=== PATIENT | female | born 1990 | race Caucasian/White ===

== ENCOUNTER 2022-11-08 12:08 | Inpatient (IN) | payer MEDICAID, OTHER ==
[~2022-11-08] VITALS: Ht 162.6 cm; Wt 64.9 kg
[2022-11-08] MEDS ORDERED: LORazepam 2 MG TABLET PO PRN (14:30)
[2022-11-08] MEDS ORDERED: QUEtiapine FUMARATE 100 MG TABLET PO PRN (14:30)
[2022-11-08] MEDS ORDERED: ZOLPIDEM TARTRATE 10 MG TABLET PO PRN (14:30)
[2022-11-08 18:45] LABS: COVID AG,FIA SOURCE NASAL SWAB
[2022-11-08 19:11] LABS: SARS-COV2 (COVID) ANTIGEN,FIA Negative (Negative)
[2022-11-09 04:20] VITALS: BP 107/66; PULSE 52; RESP 18; TEMP 97.3; O2SAT 100
[2022-11-09 08:21] VITALS: BP 102/62; PULSE 68; RESP 20; TEMP 98.2; O2SAT 98
[2022-11-09] MEDS: RisperiDONE 1 MG TABLET PO SCH ×2 (11:30→20:25)
[2022-11-09] MEDS: DIVALPROEX SODIUM 500 MG DR TABLET PO SCH ×2 (11:30→20:25)
[2022-11-09] MEDS ORDERED: NICOTINE 14 MG/24 HOUR PATCH TD PRN (15:00)
[2022-11-09] MEDS ORDERED: ONDANSETRON HCL 4 MG TABLET PO PRN (15:00)
[2022-11-09] MEDS ORDERED: ALBUTEROL SULFATE HFA 90 MCG/PUFF 8 GM INHALER IH PRN (15:00)
[2022-11-09] MEDS ORDERED: DOCUSATE SODIUM 100 MG CAPSULE PO PRN (15:00)
[2022-11-09] MEDS ORDERED: LOPERAMIDE HCL 2 MG CAPSULE PO PRN (15:00)
[2022-11-09] MEDS ORDERED: GuaiFENesin/D-METHORPHAN [SUGAR-FREE] 200-20MG/10 ML SYRUP UDCUP PO PRN (15:00)
[2022-11-09] MEDS ORDERED: MAGNESIUM HYDROXIDE SUSPENSION 30 ML UDCUP PO PRN (15:00)
[2022-11-09] MEDS ORDERED: MAG HYDROX/ALUMINUM HYD/SIMETH ES 30 ML SUSPENSION UDCUP PO PRN (15:00)
[2022-11-09] MEDS ORDERED: IBUPROFEN 400 MG TABLET PO PRN (15:00)
[2022-11-09] MEDS ORDERED: CloNIDine HCL 0.1 MG TABLET PO PRN (15:00)
[2022-11-09] MEDS ORDERED: PETROLATUM,WHITE 28 GM JELLY TP PRN (15:00)
[2022-11-09] MEDS ORDERED: ACETAMINOPHEN 325 MG TABLET PO PRN (15:00)
[2022-11-09 20:00] VITALS: BP 109/69; PULSE 64; RESP 18; TEMP 97.8; O2SAT 98
[2022-11-10 08:36] VITALS: RESP 17
[2022-11-10] MEDS: DIVALPROEX SODIUM 500 MG DR TABLET PO SCH ×2 (09:00→20:21)
[2022-11-10] MEDS: RisperiDONE 1 MG TABLET PO SCH ×2 (09:00→20:21)
[2022-11-10 20:00] VITALS: BP 106/63; PULSE 57; RESP 18; TEMP 97.1; O2SAT 100
[2022-11-10] MEDS ORDERED: INFLUENZA VIRUS VACCINE QVS 2023-24 (6MO+)/PF 60 MCG/0.5 ML SYRINGE IM. ONE (20:00)
[2022-11-11] MEDS: DIVALPROEX SODIUM 500 MG DR TABLET PO SCH ×3 (08:22→20:08)
[2022-11-11] MEDS: RisperiDONE 1 MG TABLET PO SCH ×3 (08:22→20:08)
[2022-11-11 08:54] VITALS: BP 107/65; PULSE 74; RESP 17; TEMP 97.1; O2SAT 99
[2022-11-11 20:36] VITALS: BP 105/54; PULSE 70; RESP 18; TEMP 97; O2SAT 99
[2022-11-12] MEDS: RisperiDONE 1 MG TABLET PO SCH ×2 (08:42→21:00)
[2022-11-12] MEDS: DIVALPROEX SODIUM 500 MG DR TABLET PO SCH ×2 (08:42→21:00)
[2022-11-12 09:06] VITALS: BP 102/60; PULSE 76; RESP 17; TEMP 97.5; O2SAT 98
[2022-11-12 22:03] VITALS: BP 115/77; PULSE 115; RESP 18; TEMP 97.6; O2SAT 98
[2022-11-13 08:00] VITALS: BP 119/72; PULSE 76; RESP 18; TEMP 97; O2SAT 100
[2022-11-13] MEDS: RisperiDONE 1 MG TABLET PO SCH ×2 (08:44→20:22)
[2022-11-13] MEDS: DIVALPROEX SODIUM 500 MG DR TABLET PO SCH ×2 (08:44→20:22)
[2022-11-13 21:46] VITALS: RESP 16
[2022-11-14 08:00] VITALS: RESP 20
[2022-11-14] MEDS: DIVALPROEX SODIUM 500 MG DR TABLET PO SCH ×2 (09:00→21:00)
[2022-11-14] MEDS: RisperiDONE 1 MG TABLET PO SCH ×2 (09:00→21:00)
[2022-11-14 20:36] VITALS: BP 127/87; PULSE 65; RESP 18; TEMP 98.1; O2SAT 97
[2022-11-15 08:12] VITALS: BP 110/63; PULSE 75; RESP 17; TEMP 97.3; O2SAT 99
[2022-11-15] MEDS: DIVALPROEX SODIUM 500 MG DR TABLET PO SCH ×2 (08:54→20:29)
[2022-11-15] MEDS: RisperiDONE 1 MG TABLET PO SCH ×2 (08:54→20:29)
[2022-11-15 20:32] VITALS: RESP 18
[2022-11-16 08:17] VITALS: BP 100/64; PULSE 68; RESP 17; TEMP 97; O2SAT 99
[2022-11-16] MEDS: RisperiDONE 1 MG TABLET PO SCH ×2 (08:22→21:00)
[2022-11-16] MEDS: DIVALPROEX SODIUM 500 MG DR TABLET PO SCH ×2 (08:23→21:00)
[2022-11-16] MEDS ORDERED: LORazepam 2 MG/ML VIAL ONE (14:52)
[2022-11-16] MEDS ORDERED: HALOPERIDOL LACTATE 5 MG/ML VIAL ONE (14:53)
[2022-11-16] MEDS ORDERED: HALOPERIDOL LACTATE 5 MG/ML VIAL IM ONE (15:00)
[2022-11-16] MEDS ORDERED: DiphenhydrAMINE HCL 50 MG/ML VIAL IM ONE (15:00)
[2022-11-16] MEDS ORDERED: LORazepam 2 MG/ML VIAL IM ONE (15:00)
[2022-11-16 20:41] VITALS: RESP 17
[2022-11-17] MEDS: DIVALPROEX SODIUM 500 MG DR TABLET PO SCH ×2 (08:44→20:35)
[2022-11-17] MEDS: RisperiDONE 1 MG TABLET PO SCH ×2 (08:44→20:35)
[2022-11-17 09:33] VITALS: BP 108/65; PULSE 87; RESP 20; TEMP 97.6; O2SAT 99
[2022-11-17 21:29] VITALS: BP 100/65; PULSE 82; RESP 18; TEMP 97.8; O2SAT 97
[2022-11-18 08:00] VITALS: BP 110/70; PULSE 88; RESP 18; TEMP 97
[2022-11-18] MEDS: DIVALPROEX SODIUM 500 MG DR TABLET PO SCH ×2 (08:30→21:38)
[2022-11-18] MEDS: RisperiDONE 1 MG TABLET PO SCH ×2 (08:30→21:38)
[2022-11-18 20:52] VITALS: BP 106/68; PULSE 70; RESP 17; TEMP 97.2; O2SAT 98
[2022-11-19] MEDS: DIVALPROEX SODIUM 500 MG DR TABLET PO SCH ×2 (08:26→20:15)
[2022-11-19] MEDS: RisperiDONE 1 MG TABLET PO SCH ×2 (08:26→20:15)
[2022-11-19 09:40] VITALS: BP 108/71; PULSE 79; RESP 17; TEMP 97.7; O2SAT 99
[2022-11-19 20:18] VITALS: BP 111/66; PULSE 70; RESP 18; TEMP 97.7; O2SAT 98
[2022-11-20 08:30] VITALS: BP 111/68; PULSE 77; RESP 16; TEMP 97.8; O2SAT 98
[2022-11-20] MEDS: RisperiDONE 1 MG TABLET PO SCH ×3 (09:00→22:48)
[2022-11-20] MEDS: DIVALPROEX SODIUM 500 MG DR TABLET PO SCH ×2 (09:00→21:00)
[2022-11-20] MEDS ORDERED: HALOPERIDOL LACTATE 5 MG/ML VIAL IM PRN (16:00)
[2022-11-20 20:12] VITALS: BP 111/70; PULSE 74; RESP 18; TEMP 97.5; O2SAT 97
[2022-11-21] MEDS: RisperiDONE 1 MG TABLET PO SCH ×2 (08:19→20:38)
[2022-11-21] MEDS: DIVALPROEX SODIUM 500 MG DR TABLET PO SCH ×2 (08:19→20:38)
[2022-11-21 08:55] VITALS: BP 124/68; PULSE 80; RESP 18; TEMP 97.2; O2SAT 99
[2022-11-21 20:25] VITALS: BP 111/78; PULSE 84; RESP 16; TEMP 97.6; O2SAT 98
[2022-11-22 09:19] VITALS: BP 117/71; PULSE 78; RESP 18; TEMP 98; O2SAT 100
[2022-11-22] MEDS: RisperiDONE 1 MG TABLET PO SCH ×2 (09:41→20:35)
[2022-11-22] MEDS: DIVALPROEX SODIUM 500 MG DR TABLET PO SCH ×2 (09:41→20:35)
[2022-11-22 21:34] VITALS: BP 104/64; PULSE 68; RESP 18; TEMP 97.8; O2SAT 97
[2022-11-23] MEDS: RisperiDONE 1 MG TABLET PO SCH ×2 (09:32→20:08)
[2022-11-23] MEDS: DIVALPROEX SODIUM 500 MG DR TABLET PO SCH ×2 (09:32→20:08)
[2022-11-24 02:10] VITALS: BP 111/65; PULSE 104; RESP 16; TEMP 97.8; O2SAT 100
[2022-11-24] MEDS: RisperiDONE 1 MG TABLET PO SCH ×2 (08:28→20:55)
[2022-11-24] MEDS: DIVALPROEX SODIUM 500 MG DR TABLET PO SCH ×2 (08:28→20:55)
[2022-11-24 20:00] VITALS: BP 110/71; PULSE 68; RESP 18; TEMP 97.7; O2SAT 97
[2022-11-25] MEDS: RisperiDONE 1 MG TABLET PO SCH ×2 (08:37→20:16)
[2022-11-25] MEDS: DIVALPROEX SODIUM 500 MG DR TABLET PO SCH ×2 (08:37→20:16)
[2022-11-25 11:53] VITALS: BP 100/68; PULSE 87; RESP 17; TEMP 97.7; O2SAT 97
[2022-11-25 22:27] VITALS: BP 109/67; PULSE 73; RESP 16; TEMP 97.8; O2SAT 96
[2022-11-26] MEDS: RisperiDONE 1 MG TABLET PO SCH ×2 (09:13→20:41)
[2022-11-26] MEDS: DIVALPROEX SODIUM 500 MG DR TABLET PO SCH ×2 (09:13→20:41)
[2022-11-26 13:50] VITALS: BP 116/66; PULSE 85; RESP 17; TEMP 97; O2SAT 96
[2022-11-26 22:39] VITALS: BP 106/73; PULSE 76; RESP 16; TEMP 97.3
[2022-11-27] MEDS: DIVALPROEX SODIUM 500 MG DR TABLET PO SCH ×2 (08:55→21:43)
[2022-11-27] MEDS: RisperiDONE 1 MG TABLET PO SCH ×2 (08:55→21:43)
[2022-11-27 10:43] VITALS: BP 108/73; PULSE 64; RESP 16; TEMP 97.7; O2SAT 98
[2022-11-27 21:32] VITALS: BP 113/67; PULSE 66; RESP 18; TEMP 97.6
[2022-11-28] MEDS: DIVALPROEX SODIUM 500 MG DR TABLET PO SCH ×2 (09:44→20:24)
[2022-11-28] MEDS: RisperiDONE 1 MG TABLET PO SCH ×2 (09:44→20:24)
[2022-11-28 10:12] VITALS: BP 123/63; PULSE 80; RESP 16; TEMP 98; O2SAT 99
[2022-11-28 20:07] VITALS: BP 115/76; PULSE 78; RESP 17; TEMP 98.1; O2SAT 98
[2022-11-29 08:33] VITALS: BP 105/70; PULSE 72; RESP 16; TEMP 97.6; O2SAT 99
[2022-11-29] MEDS: DIVALPROEX SODIUM 500 MG DR TABLET PO SCH ×2 (08:33→20:13)
[2022-11-29] MEDS: RisperiDONE 1 MG TABLET PO SCH ×2 (08:33→20:13)
[2022-11-29 20:40] VITALS: BP 108/66; PULSE 65; RESP 17; TEMP 97.7; O2SAT 97
[2022-11-30 08:22] VITALS: BP 106/67; PULSE 63; RESP 17; TEMP 97.3; O2SAT 96
[2022-11-30] MEDS: RisperiDONE 1 MG TABLET PO SCH ×2 (09:05→20:07)
[2022-11-30] MEDS: DIVALPROEX SODIUM 500 MG DR TABLET PO SCH ×2 (09:05→20:07)
[2022-12-01 00:31] VITALS: RESP 20; TEMP 98
[2022-12-01 08:33] VITALS: BP 108/71; PULSE 78; RESP 16; TEMP 97.5; O2SAT 96
[2022-12-01] MEDS: DIVALPROEX SODIUM 500 MG DR TABLET PO SCH ×2 (09:39→20:13)
[2022-12-01] MEDS: RisperiDONE 1 MG TABLET PO SCH ×2 (09:39→20:13)
[2022-12-01 20:50] VITALS: BP 108/52; PULSE 65; RESP 18; TEMP 97.5; O2SAT 95
[2022-12-02] MEDS: RisperiDONE 1 MG TABLET PO SCH ×2 (08:35→20:56)
[2022-12-02] MEDS: DIVALPROEX SODIUM 500 MG DR TABLET PO SCH ×2 (08:35→20:56)
[2022-12-02 08:36] VITALS: BP 114/66; PULSE 80; RESP 16; TEMP 98.2; O2SAT 97
[2022-12-02 22:57] VITALS: BP 110/63; PULSE 71; RESP 18; TEMP 97.7
[2022-12-03 08:37] VITALS: BP 100/68; PULSE 82; RESP 16; TEMP 97.6; O2SAT 96
[2022-12-03] MEDS: DIVALPROEX SODIUM 500 MG DR TABLET PO SCH ×2 (09:01→20:11)
[2022-12-03] MEDS: RisperiDONE 1 MG TABLET PO SCH ×2 (09:01→20:11)
[2022-12-03 20:42] VITALS: BP 108/78; PULSE 60; RESP 18; TEMP 97.7; O2SAT 96
[2022-12-04] MEDS: RisperiDONE 1 MG TABLET PO SCH ×2 (08:27→20:10)
[2022-12-04] MEDS: DIVALPROEX SODIUM 500 MG DR TABLET PO SCH ×2 (08:27→20:10)
[2022-12-04 09:14] VITALS: BP 115/74; PULSE 71; RESP 17; TEMP 98; O2SAT 100
[2022-12-04 21:26] VITALS: BP 108/62; PULSE 71; RESP 16; TEMP 98; O2SAT 98
[2022-12-05 08:33] VITALS: BP 100/68; PULSE 78; RESP 16; TEMP 97.6; O2SAT 98
[2022-12-05] MEDS: RisperiDONE 1 MG TABLET PO SCH ×2 (09:49→20:45)
[2022-12-05] MEDS: DIVALPROEX SODIUM 500 MG DR TABLET PO SCH ×2 (09:49→20:45)
[2022-12-05 20:41] VITALS: BP 103/63; PULSE 69; RESP 17; TEMP 97.7; O2SAT 96
[2022-12-06 08:30] VITALS: BP 100/61; PULSE 84; RESP 16; TEMP 97.6; O2SAT 97
[2022-12-06] MEDS: DIVALPROEX SODIUM 500 MG DR TABLET PO SCH ×2 (09:42→21:23)
[2022-12-06] MEDS: RisperiDONE 1 MG TABLET PO SCH ×2 (09:42→21:23)
[2022-12-06 21:13] VITALS: BP 105/64; PULSE 78; RESP 17; TEMP 97.7; O2SAT 98
[2022-12-07] MEDS ORDERED: DIVA-112 PO ×2 (08:04→15:40)
[2022-12-07] MEDS ORDERED: RISP1TAB98 PO ×2 (08:04→15:40)
[2022-12-07] MEDS: DIVALPROEX SODIUM 500 MG DR TABLET PO SCH (08:38)
[2022-12-07] MEDS: RisperiDONE 1 MG TABLET PO SCH (08:39)
[2022-12-07 09:09] VITALS: BP 109/74; PULSE 76; RESP 16; TEMP 98; O2SAT 98
[2022-12-07 09:31] LABS: GLUCOMETER DEV NAME(LOC) POC.BV; POC SARS-COV2 AG, FIA NEGATIVE (NEGATIVE)
== END 2022-12-07 10:45 | disposition home or self-care (01) | DRG 753 ==
LOC: EMS 12:09 → B3A 11-09 00:02
PROVIDERS: ADMIT Psychiatry & Neurology Psychiatry; ATTEND Psychiatry & Neurology Psychiatry
DX: F31.2 Bipolar disorder, current episode manic severe with psychotic features (principal); Z91.148 Patient's other noncompliance with medication regimen for other reason; F41.9 Anxiety disorder, unspecified; K59.00 Constipation, unspecified; G47.00 Insomnia, unspecified; Z79.899 Other long term (current) drug therapy; Z20.822 Contact with and (suspected) exposure to COVID-19
CPT/HCPCS: 80164; 99285; J1200; J1630; J2060